=== PATIENT | female | born 1990 | race American Indian/Alaskan Native ===

== ENCOUNTER 2017-02-03 13:28 | Emergency (ER) | payer BC ==
[2017-02-03] MEDS ORDERED: DUONEB 0.5 MG-3 MG/3 ML SOLN IH ONE (15:03)
[2017-02-03] MEDS ORDERED: DELTASONE PO ONE (15:03)
--- NOTE | 2017-02-03 15:11 | Emergency Department Report ---
ED Asthma HPI - General Chief Complaint: Adult Asthma Stated Complaint: ASTHMA WEEZING Time Seen by Provider: 02/03/17 15:02 Source: patient Mode of arrival: Ambulatory Limitations: No Limitations - History of Present Illness MD Complaint: "asthma attack", wheezing -: Gradual, days(s) (2) Associated Symptoms: none. denies: productive cough, fever - Related Data Current Asthma Therapy: other (patient states she is out of her medications) Home Medications Medication Instructions Recorded Confirmed Last Taken ALBUTEROL Inhaler [ProAir HFA 02/03/17 Unknown Inhaler] ALBUTEROL NEB's [Proventil 0.083% 02/03/17 02/03/17 NEBS] Previous Rx's Medication Instructions Recorded Last Taken Type ALBUTEROL Inhaler [ProAir HFA 2 puff IH QID PRN #1 inhalation 02/03/17 Unknown Rx Inhaler] ALBUTEROL NEB's [Proventil 0.083% 2.5 mg IH QID #30 nebu 02/03/17 Unknown Rx NEBS] Prednisone [predniSONE 10 mg 10 mg PO .TAPER #1 tab.ds.pk 02/03/17 Unknown Rx (6-Day Pack, 21 Tabs)] Allergies Allergy/AdvReac Type Severity Reaction Status Date / Time No Known Allergies Allergy Unverified 02/03/17 13:32 ED Review of Systems ROS: Stated complaint: ASTHMA WEEZING Other details as noted in HPI Constitutional: denies: see HPI, chills, diaphoresis, fever Eyes: denies: eye pain, eye discharge ENT: denies: ear pain, throat pain Respiratory: shortness of breath, wheezing. denies: SOB with exertion, SOB at rest Cardiovascular: denies: chest pain, palpitations, syncope Gastrointestinal: denies: abdominal pain, nausea, vomiting, diarrhea Genitourinary: denies: urgency, dysuria Skin: denies: rash, lesions, change in color Neurological: denies: headache, weakness ED Past Medical Hx - Past Medical History Previous Medical History?: Yes Hx Asthma: Yes - Surgical History Past Surgical History?: No - Social History Smoking Status: Former Smoker Substance Use Type: Alcohol, Prescribed - Medications Home Medications: Home Medications Medication Instructions Recorded Confirmed Last Taken Type ALBUTEROL Inhaler [ProAir HFA 02/03/17 Unknown History Inhaler] ALBUTEROL Inhaler [ProAir HFA 2 puff IH QID PRN #1 inhalation 02/03/17 Unknown Rx Inhaler] ALBUTEROL NEB's [Proventil 0.083% 02/03/17 02/03/17 History NEBS] ALBUTEROL NEB's [Proventil 0.083% 2.5 mg IH QID #30 nebu 02/03/17 Unknown Rx NEBS] Prednisone [predniSONE 10 mg 10 mg PO .TAPER #1 tab.ds.pk 02/03/17 Unknown Rx (6-Day Pack, 21 Tabs)] ED Physical Exam - General Limitations: No Limitations General appearance: alert, in no apparent distress - Head Head exam: Present: atraumatic, normocephalic - Eye Eye exam: Present: normal appearance. Absent: PERRL, EOMI - ENT ENT exam: Present: normal exam - Neck Neck exam: Present: normal inspection, full ROM. Absent: tenderness, meningismus, lymphadenopathy - Respiratory Respiratory exam: Present: wheezes (mild diffuse expiratory wheezes). Absent: normal lung sounds bilaterally, respiratory distress, rales, rhonchi, stridor, accessory muscle use, decreased breath sounds, prolonged expiratory - Cardiovascular Cardiovascular Exam: Present: regular rate - GI/Abdominal GI/Abdominal exam: Present: soft. Absent: distended, tenderness - Neurological Exam Neurological exam: Present: alert, altered, normal gait - Skin Skin exam: Present: warm, dry, intact, normal color. Absent: rash ED Course Vital Signs 02/03/17 13:33 Temperature 98 F Pulse Rate 88 Respiratory 22 Rate Blood Pressure 117/78 O2 Sat by Pulse 100 Oximetry - Reevaluation(s) Reevaluation #1: 02/03/17 16:00 Patient's wheezes resolved after breathing treatment. Critical care attestation.: If time is entered above; I have spent that time in minutes in the direct care of this critically ill patient, excluding procedure time. ED Disposition Clinical Impression: Asthma attack Disposition: DISCHARGED TO HOME OR SELFCARE Is pt being admited?: No Condition: Stable Prescriptions: ALBUTEROL Inhaler [ProAir HFA Inhaler] 2 puff IH QID PRN #1 inhalation PRN Reason: Shortness Of Breath ALBUTEROL NEB's [Proventil 0.083% NEBS] 2.5 mg IH QID #30 nebu Prednisone [predniSONE 10 mg (6-Day Pack, 21 Tabs)] 10 mg PO .TAPER #1 tab.ds.pk Referrals: PRIMARY CARE, [Primary Care Provider] - 3-5 Days Forms: Work/School Release Form(ED)
[2017-02-03 16:47] VITALS: BP 120/74
== END 2017-02-03 16:48 | disposition home or self-care (01) ==
LOC: ED 13:28
DX: J45.909 Unspecified asthma, uncomplicated (principal); Z87.891 Personal history of nicotine dependence
CPT/HCPCS: 94640; 99282; J7512